=== PATIENT | male | born 1960 | race Caucasian/White ===

== ENCOUNTER 2018-06-11 09:03 | Day surgery (SDC) | payer OTHER | END 2018-06-12 13:45 | disposition home or self-care (01) | LOC: GIL 09:03 | DX: Z12.11 Encounter for screening for malignant neoplasm of colon (principal); D12.5 Benign neoplasm of sigmoid colon; F17.200 Nicotine dependence, unspecified, uncomplicated | CPT/HCPCS: 45380; 88305 ==